=== PATIENT | male | born 1950 | race Caucasian/White ===

== ENCOUNTER → 2024-07-30 | Outpatient (REF) | payer MEDICARE | LOC: DX 08:07 | PROVIDERS: ATTEND Internal Medicine Gastroenterology | DX: R19.7 Diarrhea, unspecified (principal); K21.9 Gastro-esophageal reflux disease without esophagitis; K44.9 Diaphragmatic hernia without obstruction or gangrene; K57.30 Diverticulosis of large intestine without perforation or abscess without bleeding; K76.0 Fatty (change of) liver, not elsewhere classified; Z68.29 Body mass index [BMI] 29.0-29.9, adult; Z71.3 Dietary counseling and surveillance; Z78.9 Other specified health status; Z86.0100 Personal history of colon polyps, unspecified | CPT/HCPCS: 74250 ==